=== PATIENT | male | born 1950 | race Caucasian/White ===

== ENCOUNTER 2016-04-25 11:35 | Outpatient (CLI) | payer MEDICARE, BC ==
[2016-04-25 12:37] LABS: #Basophils 0.1 thou/uL (0.0-0.2); #Eosinphils 0.1 thou/uL (0.0-0.7); #Lymphocytes 1.4 thou/uL (1.20-3.40); #Monocytes 0.3 thou/uL (0.11-0.59); #Neutrophils 2.7 thou/uL (1.40-6.50); %Eosinophils 2.6 % (0.0-10.0); %Lymphocytes 30.5 % (21.0-51.0); %Monocytes 6.3 % (0.0-10.0); Hematocrit 46.4 % (42.0-52.0); Mean Platelet Volume 10.3 fL (7.4-10.4); Red Blood Cell (RBC) Count 4.81 mill/uL (4.70-6.10); White Blood Cell (WBC) Count 4.6 thou/uL (4.8-10.8)
[2016-04-25 12:45] LABS: ALT (SGPT) 31 U/L (0-55); AST (SGOT) 25 U/L (5-34); Alkaline Phosphatase 77 U/L (40-150); Anion Gap 13 mmol/L (10-20); BUN (Urea Nitrogen) 17 mg/dL (8.4-25.7); Bilirubin, Direct 0.1 mg/dL (0.1-0.3); Bilirubin, Total 0.4 mg/dL (0.2-1.2); Calc. Creatinine Clearance 0 mL/min (70-130); Calcium 9.5 mg/dL (7.8-10.44); Carbon Dioxide 26 mmol/L (23-31); Chloride 105 mmol/L (98-107); Estimated GFR-MDRD 70; LDL Cholesterol, Calculated 133 mg/dL; Protein, Total 6.9 g/dL (5.8-8.1)
[2016-04-25 13:08] LABS: Hemoglobin A1c 5.3 % (4.0-6.0)
== END 2016-04-25 11:36 | disposition home or self-care (01) ==
LOC: NAVSJIPCSP 11:35
PROVIDERS: ATTEND Family Medicine
DX: I10 Essential (primary) hypertension (principal); J30.9 Allergic rhinitis, unspecified; Z77.090 Contact with and (suspected) exposure to asbestos
CPT/HCPCS: 36415; 80048; 80061; 80076; 83036; 84443; 85025; G0103

== ENCOUNTER 2016-10-23 08:42 | Outpatient (CLI) | payer MEDICARE, BC ==
[2016-10-23 12:32] LABS: #Basophils 0.1 thou/uL (0.0-0.2); #Eosinphils 0.2 thou/uL (0.0-0.7); #Lymphocytes 1.9 thou/uL (1.20-3.40); #Monocytes 0.5 thou/uL (0.11-0.59); #Neutrophils 3.8 thou/uL (1.40-6.50); %Basophils 1.6 % (0.0-1.0); %Eosinophils 2.8 % (0.0-10.0); %Lymphocytes 29.4 % (21.0-51.0); %Monocytes 7.9 % (0.0-10.0); %Neutrophils 58.4 % (42.0-75.0); Hemoglobin 14.5 g/dL (14.0-18.0); Mean Corpuscular HGB CONC 32.8 g/dL (32.0-36.0); Mean Corpuscular Hemoglobin 31.9 pg (27.0-31.0); Mean Corpuscular Volume 97.2 fl (80.0-94.0); Mean Platelet Volume 10.4 fL (7.4-10.4); Platelet Count 158 thou/uL (130-400); RBC Distribution Width 12.7 % (11.5-14.5); Red Blood Cell (RBC) Count 4.54 mill/uL (4.70-6.10); White Blood Cell (WBC) Count 6.5 thou/uL (4.8-10.8)
[2016-10-23 12:34] LABS: ALT (SGPT) 37 U/L (8-55); AST (SGOT) 24 U/L (5-34); Albumin 4.2 g/dL (3.4-4.8); Alkaline Phosphatase 66 U/L (40-150); Bilirubin, Direct 0.1 mg/dL (0.1-0.3); Bilirubin, Total 0.4 mg/dL (0.2-1.2); Cholesterol 234 mg/dl (< 200 Desired); HDL Cholesterol 39 mg/dL (>60 Neg Risk); LDL Cholesterol, Calculated 160 mg/dL; Protein, Total 6.9 g/dL (5.8-8.1); Triglycerides 177 mg/dL (Less than 150)
[2016-10-23 13:57] LABS: Hemoglobin A1c 5.4 % (4.0-6.0)
== END 2016-10-23 08:43 | disposition home or self-care (01) ==
LOC: NAVSJIPCSP 08:42
PROVIDERS: ATTEND Family Medicine
DX: I10 Essential (primary) hypertension (principal); J30.9 Allergic rhinitis, unspecified; Z77.090 Contact with and (suspected) exposure to asbestos; Z79.899 Other long term (current) drug therapy
CPT/HCPCS: 36415; 80061; 80076; 83036; 84443; 85025

== ENCOUNTER 2016-10-30 11:08 | Outpatient (CLI) | payer MEDICARE, BC ==
--- NOTE | 2016-10-30 16:02 | RAD ---
PA AND LATERAL CHEST X-RAY 10/30/2016 HISTORY: Exposure to asbestos. FINDINGS: The cardiac silhouette and pulmonary vasculature are within normal limits. The lungs are clear. Th ere is calcification of the anterior and longitudinal ligament. There is irregularity involving the left acromioclavicular joint, which is likely related to prior injury. There is corticated osseous or calcific density seen in the region of the coracoclavicular ligament, again likely related to pr ior injury. IMPRESSION: No acute cardiopulmonary process. POS: ELLEN
== END 2016-10-30 11:09 | disposition home or self-care (01) ==
LOC: NAV RAD 11:08
PROVIDERS: ATTEND Family Medicine
DX: Z77.090 Contact with and (suspected) exposure to asbestos (principal)
CPT/HCPCS: 71020

== ENCOUNTER 2020-07-19 15:56 | Outpatient (CLI) | payer MEDICARE, BC | END 2020-07-19 15:57 | disposition home or self-care (01) | LOC: NAV RAD 15:56 | PROVIDERS: ATTEND Family Medicine | DX: M25.551 Pain in right hip (principal); M76.31 Iliotibial band syndrome, right leg; M16.11 Unilateral primary osteoarthritis, right hip; M47.816 Spondylosis without myelopathy or radiculopathy, lumbar region | CPT/HCPCS: 72100 ==

== ENCOUNTER 2021-02-15 19:45 | Emergency (ER) | payer MEDICARE, BC ==
[2021-02-15] MEDS ORDERED: Lidocaine 1% (PF) 30 ML VIAL ONE (20:16)
[2021-02-15] MEDS ORDERED: Boostrix 0.5 ML (Tdap) VIAL ONE (20:26)
== END 2021-02-15 20:45 | disposition home or self-care (01) ==
LOC: NAV ERS 19:45
DX: S61.213A Laceration without foreign body of left middle finger without damage to nail, initial encounter (principal); W28.XXXA Contact with powered lawn mower, initial encounter; Z23 Encounter for immunization; I10 Essential (primary) hypertension; F17.220 Nicotine dependence, chewing tobacco, uncomplicated
CPT/HCPCS: 12002; 90471; 90715; J2001